=== PATIENT | female | born 1965 | race Caucasian/White ===

== ENCOUNTER 2018-01-06 23:37 | Emergency (ER) | payer SELFPAY ==
[~2018-01-06] VITALS: Ht 149.9 cm; Wt 81.8 kg
[~2018-01-06 23:37] MED LIST: GLYCOPYRROL PO; HYDR-4061 PO; OMEP20 PO; OXYC-158 PO; SUCR1ORA5 PO
[2018-01-07] MEDS ORDERED: ACETAMINOPHEN 500 MG TABLET PO ONE (01:30)
[2018-01-07] MEDS ORDERED: DiphenhydrAMINE HCL 25 MG CAPSULE PO ONE (01:30)
[2018-01-07 01:39] VITALS: BP 149/86
== END 2018-01-07 01:54 | disposition home or self-care (01) ==
LOC: EMS 23:38
DX: T63.301A Toxic effect of unspecified spider venom, accidental (unintentional), initial encounter (principal); Z88.5 Allergy status to narcotic agent; Z79.899 Other long term (current) drug therapy; Y92.89 Other specified places as the place of occurrence of the external cause
CPT/HCPCS: 99283

== ENCOUNTER 2019-09-11 19:21 | Emergency (ER) | payer MEDICAID ==
[~2019-09-11] VITALS: Ht 149.9 cm; Wt 79.5 kg
[~2019-09-11 19:21] MED LIST changes: -SUCR1ORA5 PO
[2019-09-11 20:38] LABS: GLUCOSE,POINT OF CARE 82 MG/DL (70-110)
[2019-09-11 21:41] LABS: BASOPHILS % (AUTO) 0.5 % (0.0-2.0); EOSINOPHILS % (AUTO) 1.9 % (1.0-6.0); HEMATOCRIT 43.3 % (36-46); HEMOGLOBIN 14.4 g/dL (12.0-16.0); LYMPHOCYTES # (AUTO) 3.2 K/uL (1.0-4.8); LYMPHOCYTES % (AUTO) 32.1 % (22.0-44.0); MEAN CORPUSCULAR HEMOGLOBIN 28.5 pg (26.0-34.0); MEAN CORPUSCULAR HGB CONC 33.3 G/dL (31.0-37.0); MEAN CORPUSCULAR VOLUME 86 fL (80-100); MONOCYTES # (AUTO) 0.4 K/uL (0.1-1.0); MONOCYTES % (AUTO) 4.1 % (2.0-9.0); NEUTROPHILS # (AUTO) 6.1 K/uL (1.8-7.7); NEUTROPHILS % (AUTO) 61.4 % (40.0-70.0); PLATELET COUNT (AUTO) 191 K/uL (150-450); RED BLOOD CELL COUNT(AUTO) 5.06 MIL/uL (4.00-5.20); RED CELL DISTRIBUTION WIDTH 13.1 % (11.5-14.5)
[2019-09-11 21:51] LABS: ANION GAP 10 mmol/L (8-16); CALCIUM, TOTAL 9.3 mg/dL (8.8-10.5); CARBON DIOXIDE 27 mmol/L (22-29); CHLORIDE 107 mmol/L (98-107); CREATININE 0.69 mg/dL (0.60-1.30); GLOMERULAR FILTR. RATE CALC > 60 mL/min (>60); GLUCOSE,RANDOM 81 mg/dL (70-110); POTASSIUM 3.7 mmol/L (3.5-5.1); SODIUM SERUM 144 mmol/L (136-145)
[2019-09-11 22:03] LABS: ALANINE AMINOTRANSFERASE 30 U/L (12-78); ALKALINE PHOSPHATASE 67 U/L (46-116); ASPARTATE AMINOTRANSFERASE 17 U/L (15-37); BILIRUBIN,TOTAL 0.6 mg/dL (0.1-1.0); HCG,QUANTITATIVE 1 mIU/mL (0-6); LIPASE 198 U/L (73-393)
[2019-09-11 22:06] LABS: APPEARANCE,URINE CLEAR (CLEAR); BILIRUBIN,URINE NEGATIVE (NEGATIVE); GLUCOSE, URINE (UA) NEGATIVE (NEGATIVE); KETONES,URINE NEGATIVE (NEGATIVE); LEUKOCYTE ESTERASE ,URINE NEGATIVE (NEGATIVE); NITRATE,URINE NEGATIVE (NEGATIVE); OCCULT BLOOD,URINE NEGATIVE (NEGATIVE); PH,URINE 7.5 (5.0-8.0); PROTEIN,URINE NEGATIVE (NEGATIVE); UROBILINOGEN,URINE 0.2 mg/dL (<=1.0)
[2019-09-11 22:14] LABS: UREA NITROGEN, BLOOD 11 mg/dL (7-18)
[2019-09-12] MEDS ORDERED: FAMOTIDINE 10 MG/ML 2 ML VIAL IVP ONE (00:15)
[2019-09-12] MEDS ORDERED: PB/HYOSCY/ATR/SCOP/LIDO/MAALOX 55 ML BOTTLE PO ONE (00:15)
[2019-09-12] MEDS ORDERED: IOVERSOL 350 MG/ML 100 ML VIAL ONE (00:28)
[2019-09-12] MEDS ORDERED: SODIUM CHLORIDE 0.9% 100 ML ONE (00:28)
[2019-09-12 00:47] VITALS: BP 126/52
[2019-09-12] MEDS ORDERED: MetroNIDAZOLE 250 MG TABLET PO ONE (03:15)
== END 2019-09-12 03:36 | disposition home or self-care (01) ==
LOC: EMS 19:24
DX: R91.1 Solitary pulmonary nodule (principal); N76.0 Acute vaginitis; B96.89 Other specified bacterial agents as the cause of diseases classified elsewhere; Z88.6 Allergy status to analgesic agent; Z88.8 Allergy status to other drugs, medicaments and biological substances
CPT/HCPCS: 36415; 74177; 76705; 80053; 81003; 82962; 83690; 84484; 84702; 85025; 87210; 87491; 87591; 93005; 96374; 99284; J3490; J7050; Q9967